=== PATIENT | female | born 2000 | race African-American/Black ===

== ENCOUNTER 2022-04-04 07:26 | Emergency (ER) | payer BC ==
[~2022-04-04] VITALS: Ht 162.6 cm; Wt 74.8 kg
[2022-04-04 07:47] VITALS: BP_SYST 130
[2022-04-04] MEDS ORDERED: IBUPROFEN 600 MG TABLET PO ONE (08:15)
[2022-04-04 08:21] LABS: BILIRUBIN,URINE NEGATIVE (NEGATIVE); BLOOD, URINE NEGATIVE (NEGATIVE); CLARITY/URINE CLEAR (CLEAR); COLOR,URINE YELLOW (YELLOW); GLUCOSE,URINE NEGATIVE (NEGATIVE); HCG,QUAL RESULT NEGATIVE (NEGATIVE); KETONES,URINE NEGATIVE (NEGATIVE); LEUKOCYTE ESTERASE ,URINE 1+ (NEGATIVE); NITRITE, URINE NEGATIVE (NEGATIVE); PH,URINE 6.5 (5.0-8.0); PROTEIN URINE NEGATIVE (NEGATIVE)
[2022-04-04 08:29] LABS: BACTERIA,URINE FEW /HPF (None Seen); RBC,URINE 0-3 /HPF (0-3)
[2022-04-04 08:30] LABS: MUCUS,URINE 1+ /LPF (None Seen)
[2022-04-04 08:39] LABS: CALCIUM 8.3 mg/dL (8.4-11.0); CREATININE 0.85 mg/dL (0.55-1.30); POTASSIUM 3.5 mmol/L (3.5-5.1)
[2022-04-04 08:40] LABS: BASOPHILS % (AUTO) 0.5 % (0.0-2.0); EOSINOPHILS # (AUTO) 0.4 K/uL (0.0-0.4); EOSINOPHILS % (AUTO) 4.7 % (0.0-4.0); HEMATOCRIT 37.4 % (36-48); HEMOGLOBIN 12.7 g/dL (12.0-16.0); LYMPHOCYTES # (AUTO) 1.4 K/uL (1.0-5.5); LYMPHOCYTES % (AUTO) 16.2 % (20.5-51.5); MEAN CORPUSCULAR HEMOGLOBIN 29 pg (27-31); MEAN CORPUSCULAR HGB CONC 34 % (32-36); MEAN CORPUSCULAR VOLUME 87 fL (79.0-98.0); MONOCYTES % (AUTO) 11.2 % (1.7-9.3); NEUTROPHILS # (AUTO) 5.7 K/uL (1.8-7.7); NEUTROPHILS % (AUTO) 67.4 % (40.0-70.0); PLATELET COUNT (AUTO) 221 K/uL (130-430); RED BLOOD CELL COUNT(AUTO) 4.32 MIL/uL (4.2-6.2); RED CELL DISTRIBUTION WIDTH 14.4 % (9.0-15.0); WHITE BLOOD COUNT (AUTO) 8.5 K/uL (4.8-10.8)
[2022-04-04 08:51] LABS: ALBUMIN 3.5 g/dL (3.4-4.8); TOTAL BILIRUBIN 0.3 mg/dL (0.0-1.0)
[2022-04-04] MEDS ORDERED: CEFU250T85 PO (10:16)
[2022-04-04] MEDS ORDERED: DOCU-144 PO (10:16)
[2022-04-04] MEDS ORDERED: POLY119P2 PO (10:16)
== END 2022-04-04 10:35 | disposition home or self-care (01) ==
LOC: SED 07:26
DX: K59.00 Constipation, unspecified (principal)
CPT/HCPCS: 36415; 76376; 80053; 81000; 83690; 84703; 85025; 87086; 99284